=== PATIENT | female | born 1975 | race Two or more races ===

== ENCOUNTER 2016-09-01 09:39 | Day surgery (SDC) | payer OTHER ==
[~2016-09-01 09:39] MED LIST: IV START KIT ONE; LACTATED RINGERS 1,000 ML IV SCH; LACTATED RINGERS 1,000 ML ONE
[2016-09-01] MEDS ORDERED: PROPOFOL 20 ML IV ONE (10:04)
[2016-09-01] MEDS ORDERED: LIDOCAINE Viscous 2% 15 ML UDCUP ONE ×2 (10:06→10:36)
[2016-09-01] MEDS ORDERED: PROPOFOL 40 ML IV ONE (10:48)
[2016-09-01 15:13] LABS: HELICOBACTER PYLORII DETECTION POSITIVE (NEGATIVE)
--- NOTE | 2016-09-04 10:09 | SURGPATH ---
[facility] [address] [place] [id number] Patient Name: NEREIDA MOSES MR#: [id number] : 1975 Gender: F Specimen #: [id number] Collected: 09/01/2016 Received: 09/03/2016 Reported: 09/04/2016 Submitting Phys: ZULEYMA LARIOS Copy To Phys: S[facility] SERGIO GROSS Clinical History / Pre-Operative Diagnosis: Dysphagia Specimen Source / Surgical Procedure Performed: Antral biopsy Interpretation: STOMACH, ANTRUM, BIOPSY: - HELICOBACTER GASTRITIS Electronically Signed Out Saniya Becerra M.D. Gross Description: The specimen is received in formalin labeled with the patient's name and "antrum". The specimen consists of two fragments of escudero soft tissue, 0.2-0.6 cm in greatest dimension. Submitted in toto in one cassette. FORTINO Sanders Microscopic Description: Sections show gastric mucosa with prominent chronic active inflammation. Numerous Helicobacter organisms are seen within crypts. No intestinal metaplasia or dysplasia is present. 1: [id number] K29.00 B96.81
== END 2016-09-01 11:32 | disposition home or self-care (01) ==
LOC: SDC 09:39
PROVIDERS: ATTEND Internal Medicine Gastroenterology
PROC: 0D748ZZ Dilation of Esophagogastric Junction, Via Natural or Artificial Opening Endoscopic (ICD-10-PCS; principal; 2016-09-01)
PROC: 0DB68ZX Excision of Stomach, Via Natural or Artificial Opening Endoscopic, Diagnostic (ICD-10-PCS; 2016-09-01)
DX: Q39.4 Esophageal web (principal); K29.60 Other gastritis without bleeding; B96.81 Helicobacter pylori [H. pylori] as the cause of diseases classified elsewhere; K29.80 Duodenitis without bleeding